=== PATIENT | female | born 1975 | race American Indian/Alaskan Native ===

== ENCOUNTER 2019-12-17 10:16 | Emergency (ER) | payer SELFPAY ==
[2019-12-17] MEDS ORDERED: diphenhydrAMINE 50 MG/ML VIAL IV ONE (13:53)
[2019-12-17] MEDS ORDERED: cloNIDine 0.1 MG TAB PO ONE (13:53)
[2019-12-17] MEDS ORDERED: METOCLOPRAMIDE 10 MG/2 ML INJ IV ONE (13:53)
[2019-12-17] MEDS ORDERED: KETOROLAC 30 MG/1 ML INJ IV ONE (13:53)
--- NOTE | 2019-12-17 14:04 | Emergency Department Report ---
ED General Adult HPI - General Chief complaint: Abdominal Pain Stated complaint: SOB/DIZZY Time Seen by Provider: 12/17/19 13:29 Source: patient Mode of arrival: Wheelchair Limitations: No Limitations - History of Present Illness Initial comments: 44-year-old -[place] female presents to the emergency room complaining of headache and dizziness today. Patient reports that she's been off of her blood pressure medicine for 8-9 months. Patient last took naproxen 3 days ago and Tylenol at 7 AM. Patient denies any change of vision she does admit to eyes and burning. Patient reports she recently arrived from [place] 1 week ago. Patient is a past medical history of hypertension and migraines. Patient reports her medications with hydrochlorothiazide Toprol and Topamax. Onset/Timin -: days(s) Location: head Radiation: non-radiation Severity scale (0 -10): 8 Quality: aching Consistency: constant Improves with: none Worsens with: none Associated Symptoms: headaches Treatments Prior to Arrival: none - Related Data Previous Rx's Medication Instructions Recorded Last Taken Type Metoprolol Succinate [Toprol Xl] 100 mg PO QDAY #30 tab.er.24h 12/17/19 Unknown Rx Topiramate [Topamax] 100 mg PO BID #15 tablet 12/17/19 Unknown Rx hydroCHLOROthiazide [HCTZ] 25 mg PO QDAY #30 tablet 12/17/19 Unknown Rx Allergies Allergy/AdvReac Type Severity Reaction Status Date / Time lisinopril Allergy Hives Verified 12/17/19 14:12 erythromycin base AdvReac Vomiting Verified 12/17/19 14:11 ED Review of Systems ROS: Stated complaint: SOB/DIZZY Other details as noted in HPI Comment: All other systems reviewed and negative ED Past Medical Hx - Past Medical History Previous Medical History?: Yes Hx Hypertension: Yes - Surgical History Past Surgical History?: Yes Hx Pacemaker: No Additional Surgical History: Tubal ligation. fibroids. left hand surgery - Medications Home Medications: Home Medications Medication Instructions Recorded Confirmed Last Taken Type Metoprolol Succinate [Toprol Xl] 100 mg PO QDAY #30 tab.er.24h 12/17/19 Unknown Rx Topiramate [Topamax] 100 mg PO BID #15 tablet 12/17/19 Unknown Rx hydroCHLOROthiazide [HCTZ] 25 mg PO QDAY #30 tablet 12/17/19 Unknown Rx ED Physical Exam - General Limitations: No Limitations General appearance: alert, in no apparent distress - Head Head exam: Present: atraumatic, normocephalic - Eye Eye exam: Present: normal appearance, PERRL, EOMI. Absent: scleral icterus, conjunctival injection - ENT ENT exam: Present: normal exam, mucous membranes moist - Respiratory Respiratory exam: Present: normal lung sounds bilaterally. Absent: respiratory distress - Cardiovascular Cardiovascular Exam: Present: regular rate, normal rhythm. Absent: systolic murmur, diastolic murmur, rubs, gallop - GI/Abdominal GI/Abdominal exam: Present: soft, normal bowel sounds - Expanded Neurological Exam Expanded Patient oriented to: Present: person, place, time Cranial nerves: EOM's Intact: Normal, Gag Reflex: Normal, Tongue Deviation: Normal, Nystagmus: Normal, Facial Sensation: Normal, Facial Palsy with Forehead Movement: Normal, Facial Palsy without Forehead Movement: Normal Cerebellar function: Finger to Nose: Normal, Heel to [place]: Normal, Romberg: Normal Upper motor neuron: Vasile Neglect: Normal, Pronator Drift: Normal, Sensory Extinction: Normal Sensory exam: Upper Extremity Light Touch: Normal, Upper Extremity Pin Prick: Normal, Upper Extremity Temperature: Normal, UE 2 Point Discrimination: Normal, Lower Extremity Light Touch: Normal, Lower Extremity Pin Prick: Normal, Lower Extremity Temperature: Normal, LE 2 Point Discrimination: Normal Motor strength exam: RUE: 4, LUE: 4, RLE: 4, LLE: 4 Best Eye Response (Aamir): (4) open spontaneously Best Motor Response (Aamir): (6) obeys commands Best Verbal Response (Aamir): (5) oriented [place] Total: 15 - Psychiatric Psychiatric exam: Present: normal affect, normal mood - Skin Skin exam: Present: warm, dry, intact, normal color. Absent: rash ED Course Vital Signs 12/17/19 12/17/19 12/17/19 10:20 13:54 14:17 Temperature 98.1 F 97.7 F Pulse Rate 88 88 88 Respiratory 16 16 Rate Blood Pressure 186/110 199/124 199/124 O2 Sat by Pulse 100 100 Oximetry ED Medical Decision Making - Medical Decision Making 44-year-old -[place] female presents to the emergency room complaining of headache and dizziness today. Patient reports that she's been off of her blood pressure medicine for 8-9 months. Patient last took naproxen 3 days ago and Tylenol at 7 AM. Patient denies any change of vision she does admit to eyes and burning. Patient reports she recently arrived from [place] 1 week ago. Patient is a past medical history of hypertension and migraines. Patient reports her medications with hydrochlorothiazide Toprol and Topamax. IV for Benadryl, Toradol, Reglan and by mouth clonidine 0.2 mg Critical care attestation.: If time is entered above; I have spent that time in minutes in the direct care of this critically ill patient, excluding procedure time. ED Disposition Clinical Impression: HTN, goal below 130/80 Headache Qualifiers: Headache type: unspecified Headache chronicity pattern: acute headache Intractability: intractable Qualified Code(s): R51 - Headache Disposition: TO HOME OR SELFCARE Is pt being admited?: No Does the pt Need Aspirin: No Condition: Stable Instructions: Abdominal Pain (ED), Hypertension (ED), Chronic Hypertension (ED), Migraine Headache (ED) Prescriptions: hydroCHLOROthiazide [HCTZ] 25 mg PO QDAY #30 tablet Topiramate [Topamax] 100 mg PO BID #15 tablet Metoprolol Succinate [Toprol Xl] 100 mg PO QDAY #30 tab.er.24h Referrals: PRIMARY MD ABA [Primary Care Provider] - 3-5 Days BEBE VENEGAS MD [Staff Physician] - 3-5 Days
[2019-12-17 15:17] VITALS: BP 154/89
== END 2019-12-17 15:25 | disposition home or self-care (01) ==
LOC: ED 10:16
DX: R51 Headache (principal); R42 Dizziness and giddiness; I10 Essential (primary) hypertension; Z98.51 Tubal ligation status; Z79.899 Other long term (current) drug therapy; Z88.8 Allergy status to other drugs, medicaments and biological substances
CPT/HCPCS: 96374; 96375; 99282; J1200; J1885; J2765